=== PATIENT | female | born 1960 | race African-American/Black ===

== ENCOUNTER 2017-04-15 11:16 | Emergency (ER) | payer MEDICAID ==
[~2017-04-15] VITALS: Ht 175.3 cm; Wt 81.0 kg
[~2017-04-15 11:16] MED LIST: PERM60CR4 TP
[2017-04-15] MEDS ORDERED: ACYC-202 PO (12:30)
[2017-04-15 12:43] VITALS: BP 172/98
== END 2017-04-15 12:44 | disposition home or self-care (01) ==
LOC: ER 11:17
DX: B02.9 Zoster without complications (principal); I10 Essential (primary) hypertension; F17.200 Nicotine dependence, unspecified, uncomplicated; F12.10 Cannabis abuse, uncomplicated
CPT/HCPCS: 99283

== ENCOUNTER 2017-09-14 17:57 | Emergency (ER) | payer MEDICAID ==
[~2017-09-14] VITALS: Ht 175.3 cm; Wt 82.8 kg
[2017-09-14 18:29] VITALS: BP 189/103
[2017-09-14] MEDS ORDERED: IBUP-1986 PO (19:30)
[2017-09-14] MEDS ORDERED: PENI500T2 PO (19:30)
[2017-09-14] MEDS ORDERED: TRAM50TA2 PO (19:30)
== END 2017-09-14 19:46 | disposition home or self-care (01) ==
LOC: ER 17:58
DX: K04.7 Periapical abscess without sinus (principal); I10 Essential (primary) hypertension; F12.90 Cannabis use, unspecified, uncomplicated; Z79.2 Long term (current) use of antibiotics; Z79.899 Other long term (current) drug therapy
CPT/HCPCS: 10060; 41800; 99283

== ENCOUNTER 2021-01-01 07:20 | Emergency (ER) | payer MEDICAID ==
[~2021-01-01] VITALS: Ht 175.3 cm; Wt 84.9 kg
[~2021-01-01 07:20] MED LIST changes: +IBUP-1986 PO
[2021-01-01 07:32] VITALS: BP 251/123
[2021-01-01] MEDS ORDERED: ibuprofen tablet 400 MG TABLET PO ONE (07:45)
--- NOTE | 2021-01-01 08:28 | NUR ---
pt states, "lynette had this hand pain since september"
== END 2021-01-01 09:13 | disposition home or self-care (01) ==
LOC: ER 07:21
DX: M79.644 Pain in right finger(s) (principal); I10 Essential (primary) hypertension; F12.90 Cannabis use, unspecified, uncomplicated; Z72.89 Other problems related to lifestyle; Z79.899 Other long term (current) drug therapy
CPT/HCPCS: 73130; 99283